=== PATIENT | male | born 1955 | race Caucasian/White ===

== ENCOUNTER 2018-04-24 08:16 | Outpatient (CLI) | payer OTHER ==
--- NOTE | 2018-04-25 09:31 | NM ---
NUCLEAR MEDICINE TOMOGRAPHIC BRAIN IMAGING: History: Parkinson's disease. Technique: A Nuclear Medicine tomographic brain imaging study was performed after administration of 4 .6 mCi I123 Ioflupane. FINDINGS: Uptake of the radiopharmaceutical on the right is in a comet configuration. Uptake on the left is in a round configuration. This exam is inconclusive for Parkinsonian syndrome, but abnormality is seen i n the left basal ganglia. IMPRESSION: Inconclusive examination with abnormality in the left basal ganglia. POS: RAY
== END 2018-04-24 08:17 | disposition home or self-care (01) ==
LOC: NM 08:16
PROVIDERS: ATTEND Psychiatry & Neurology Neurology
DX: G20 Parkinson's disease (principal); R90.89 Other abnormal findings on diagnostic imaging of central nervous system
CPT/HCPCS: 78607; A9584; A9604

== ENCOUNTER 2023-03-19 15:23 | Outpatient (CLI) | payer MEDICARE, OTHER | END 2023-03-19 15:24 | disposition home or self-care (01) | LOC: RAD 15:23 | PROVIDERS: ATTEND Family Medicine | DX: M25.571 Pain in right ankle and joints of right foot (principal) ==